=== PATIENT | female | born 1950 | race Caucasian/White ===

== ENCOUNTER → 2019-01-10 14:10 | Emergency (ER) | payer BC ==
--- NOTE | 2019-01-10 15:54 | ED ---
Lower Extremity - HPI Summary HPI Summary: Pt. is a 68 y.o female who presents to the ER for a right foot injury that occurred today. Pt. states she was outside on her patio when she stepped off to pet her dog and twisted right foot. Unable ot ambulate secondary to pain. No other injuries sustained. Sxs are mild in severity. Moving right foot makes sxs worse. nothing makes sxs better. - History of Current Complaint Chief Complaint: EDExtremityLower Stated Complaint: RT ANKLE FOOT INJ FROM FALL Hx Obtained From: Patient Pain Intensity: 4 - Allergies/Home Medications Allergies/Adverse Reactions: Allergies Allergy/AdvReac Type Severity Reaction Status Date / Time NSAIDS (Non-Steroidal Allergy Rash Verified 01/10/19 14:17 Anti-Inflamma Nyzlzdd-Awk-Zdj Reductase Allergy Muscle Ache Verified 01/10/19 14:17 Inhibitor [id number] Antimigraine Allergy Headache Verified 01/10/19 14:17 Agents PMH/Surg Hx/FS Hx/Imm Hx Previously Healthy: Yes Endocrine/Hematology History: Reports: Hx Thyroid Disease - ON MEDICATION FOR, Hx Anemia - HX OF WITH MENSTRUAL CYCLE Cardiovascular History: Reports: Hx Hypertension - ON MEDICATION FOR Musculoskeletal History: Reports: Hx Arthritis - NECK, BACK Sensory History: Reports: Hx Contacts or Glasses - GLASSES Denies: Hx Hearing Aid Opthamlomology History: Reports: Hx Contacts or Glasses - GLASSES Neurological History: Reports: Hx Headaches, Hx Migraine - HX OF - SEEMED TO DECREASED STOPPED SINCE MENOPAUSE - Surgical History Surgery Procedure, Year, and Place: AGE 15 TONSILLECTOMY. TUBAL LIGATION AGE 41 -CMC Hx Anesthesia Reactions: Yes - AFTER TUBAL LIGATION - NAUSEA Infectious Disease History: No Infectious Disease History: Denies: Traveled Outside the [place] in Last 30 Days - Social History Alcohol Use: Rare Substance Use Type: Reports: None Smoking Status (MU): Never Smoked Tobacco Review of Systems Positive: Other - right ankle and foot pain and swelling Skin: Negative Neurological: Negative Negative: Weakness, Paresthesia, Numbness All Other Systems Reviewed And Are Negative: Yes Physical Exam Triage Information Reviewed: Yes Vital Signs On Initial Exam: Initial Vitals Temp Pulse Resp BP Pulse Ox 97.5 F 61 18 150/77 96 01/10/19 14:15 01/10/19 14:15 01/10/19 14:15 01/10/19 14:15 01/10/19 14:15 Vital Signs Reviewed: Yes Appearance: Positive: Well-Appearing - Pt. sitting in wheelchair in NAD. Skin: Positive: Warm, Dry Head/Face: Positive: Normal Head/Face Inspection Eyes: Positive: Normal, EOMI Neck: Positive: Supple Musculoskeletal: Positive: Other - Moderate edema noted to the proximal lateral right food and ankle. Good pedal pulse. No breaks in the skin. No proximal tib/ fib or knee pain Neurological: Positive: Normal, CN Intact II-III Psychiatric: Positive: Affect/Mood Appropriate Procedures - Splinting Right Lower Extremity Location: applied by myself Hand-Made Type: orthoglass Splint: posterior walking Pre-Proc Neuro Vasc Exam: normal Post-Proc Neuro Vasc Exam: normal Diagnostics - Vital Signs Vital Signs Temp Pulse Resp BP Pulse Ox 01/10/19 14:15 97.5 F 61 18 150/77 96 - Laboratory Lab Statement: Any lab studies that have been ordered have been reviewed, and results considered in the medical decision making process. Lower Extremity Course/Dx - Course Course Of Treatment: Pt. with foot and ankle injuries. Xrays show avulsion fx to distal fibula and fx to base of 5th metatarsal. Foot and ankle immobilized and crutches given. To call ortho tomorrow for f.u apt. To ice and elevate. Small rx for lortab given. MANAGER OUTPATIENT reviewed. Pt. understands and agrees with plan. - Diagnoses Differential Diagnosis/HQI/PQRI: Positive: Contusion, Fracture (Closed), Sprain , Strain Provider Diagnoses: Metacarpal bone fracture, Closed fibular fracture Discharge - Sign-Out/Discharge Documenting (check all that apply): Patient Departure Patient Received Moderate/Deep Sedation with Procedure: No - Discharge Plan Condition: Good Disposition: HOME Prescriptions: Hydrocodone/Acetaminophen [Hydrocodone-Acetamin 5-325 mg] 1 each PO Q6H #12 tablet MDD 4 Patient Education Materials: Ankle Fracture (ED), Foot Fracture in Adults (ED) Forms: *Work Release Referrals: Sathya Robledo MD [Medical Doctor] - Key Kraft MD [Primary Care Provider] - Additional Instructions: Call the orthopedic office tomorrow morning to schedule an appointment within one week Keep splint in place Ice and elevate Use crutches Pain medication as directed Return to ER if symptoms change or worsen - Billing Disposition and Condition Condition: GOOD Disposition: Home
[2019-01-10 17:36] VITALS: BP 170/71
== END | disposition home or self-care (01) ==
LOC: ED 14:10
DX: S62.316A Displaced fracture of base of fifth metacarpal bone, right hand, initial encounter for closed fracture (principal); S82.401A Unspecified fracture of shaft of right fibula, initial encounter for closed fracture; X50.9XXA Other and unspecified overexertion or strenuous movements or postures, initial encounter; Y92.008 Other place in unspecified non-institutional (private) residence as the place of occurrence of the external cause; E07.9 Disorder of thyroid, unspecified; I10 Essential (primary) hypertension; Z79.899 Other long term (current) drug therapy; Z88.8 Allergy status to other drugs, medicaments and biological substances
CPT/HCPCS: 99282